=== PATIENT | female | born 1990 | race African-American/Black ===

== ENCOUNTER 2018-03-26 17:23 | Emergency (ER) | payer BC ==
[~2018-03-26] VITALS: Ht 157.5 cm; Wt 117.9 kg
[~2018-03-26 17:23] MED LIST: APAP500; IBUPROFEN 600600 M1; LASIX 20 MG TAB20 MG; TRINATE TABLET1 TAB; TRINATE TABLET1 TAB PO; TUCKS1 EAC1
[2018-03-26 18:59] VITALS: BP 137/93
[2018-03-26] MEDS ORDERED: HYDROCODONE-AP1 EAC6 PO (19:10)
[2018-03-26] MEDS ORDERED: FLEXERIL PO (19:10)
== END 2018-03-26 19:31 | disposition home or self-care (01) ==
LOC: ER 17:23
DX: S39.012A Strain of muscle, fascia and tendon of lower back, initial encounter (principal); S80.01XA Contusion of right knee, initial encounter; V89.2XXA Person injured in unspecified motor-vehicle accident, traffic, initial encounter; Y93.I9 Activity, other involving external motion; Y92.89 Other specified places as the place of occurrence of the external cause; Y99.8 Other external cause status